=== PATIENT | female | born 1945 | race Two or more races ===

== ENCOUNTER 2023-12-19 14:42 | Inpatient (IN) | payer MEDICARE, BC ==
[~2023-12-19] VITALS: Ht 157.5 cm; Wt 49.0 kg
[2023-12-19] MEDS: IV NS 0.9% 1,000 ML BAG IV ONE (15:16)
[2023-12-19 15:28] LABS: BASOPHILS % (AUTO) 0.4 % (0.0-2.0); EOSINOPHILS # (AUTO) 0.1 K/uL (0.0-0.7); EOSINOPHILS % (AUTO) 1.4 % (0.0-6.0); HEMATOCRIT 35 % (33-45); HEMOGLOBIN 11.5 g/dL (11.5-14.8); LYMPHOCYTES # (AUTO) 1.1 K/uL (0.8-4.8); LYMPHOCYTES % (AUTO) 19.1 % (20.0-44.0); MEAN CORPUSCULAR HEMOGLOBIN 28 PG (26.0-33.0); MEAN CORPUSCULAR HGB CONC 33 g/dl (31.0-36.0); MEAN CORPUSCULAR VOLUME 84 fL (82-100); MONOCYTES # (AUTO) 0.5 K/uL (0.1-1.30); NEUTROPHILS # (AUTO) 4.1 K/uL (1.8-8.9); NEUTROPHILS % (AUTO) 70.1 % (43.0-81.0); PLATELET COUNT (AUTO) 203 K/uL (150-450); RED BLOOD CELL COUNT(AUTO) 4.15 MIL/uL (4.0-5.2); RED CELL DISTRIBUTION WIDTH 15.8 % (11.5-15.0); WHITE BLOOD COUNT (AUTO) 5.8 K/uL (4.3-11.0)
[2023-12-19 15:39] LABS: SERUM AMMONIA 19 umol/L (11-32)
[2023-12-19 15:41] LABS: CALCIUM, SERUM 8.9 mg/dL (8.5-10.1); CARBON DIOXIDE 32 mmol/L (21-32); CHLORIDE 103 mmol/L (98-107); CREATININE 1.3 mg/dL (0.6-1.3); GLUCOSE 92 mg/dL (74-106); POTASSIUM 3.3 mmol/L (3.5-5.1); SODIUM SERUM 142 mmol/L (136-145); UREA NITROGEN, BLOOD 22 mg/dL (7-18)
[2023-12-19 15:44] LABS: ALANINE AMINOTRANSFERASE 25 U/L (12-78); ALBUMIN 2.9 g/dL (3.4-5.0); ALKALINE PHOSPHATASE 41 U/L (46-116); ASPARTATE AMINOTRANSFERASE 21 U/L (15-37); BILIRUBIN,DIRECT 0.1 mg/dL (0.0-0.2); BILIRUBIN,TOTAL 0.6 mg/dL (0.2-1.0); TOTAL PROTEIN, SERUM 5.9 g/dL (6.4-8.2)
[2023-12-19] MEDS ORDERED: MAGN400O6 PO (15:56)
[2023-12-19] MEDS ORDERED: BISA10SU11 RC (15:56)
[2023-12-19] MEDS ORDERED: BUPR-54 PO (15:56)
[2023-12-19] MEDS ORDERED: AMPH10TA4 PO (15:56)
[2023-12-19] MEDS ORDERED: VENL37.591 PO (15:56)
[2023-12-19] MEDS ORDERED: ASPI-1420 PO (15:56)
[2023-12-19] MEDS ORDERED: THYR30TA2 PO (15:56)
[2023-12-19] MEDS ORDERED: BUPR-319 PO (15:56)
[2023-12-19] MEDS ORDERED: TRAZ150T75 PO (15:56)
[2023-12-19] MEDS ORDERED: MAG30ORA PO (15:56)
[2023-12-19] MEDS ORDERED: CYCL30DR EACHEYE (15:56)
[2023-12-19] MEDS ORDERED: ATOR10TA PO (15:56)
[2023-12-19] MEDS ORDERED: LOPE-195 PO (15:56)
[2023-12-19] MEDS ORDERED: LOSA100T31 PO (15:56)
[2023-12-19] MEDS ORDERED: ACET325T53 PO (15:56)
[2023-12-19 16:01] LABS: ALCOHOL, BLOOD < 3 mg/dL (0-10)
[2023-12-19 16:04] LABS: ACETAMINOPHEN 0 ug/ml (10-30); SALICYLATE 0.5 mg/dL (2.8-20.0)
[2023-12-19 16:41] LABS: APPEARANCE,URINE CLEAR (CLEAR); BILIRUBIN,URINE NEGATIVE (NEGATIVE); BLOOD, URINE TRACE-INTA Ery/uL (NEGATIVE); COLOR,URINE YELLOW (YELLOW); KETONES,URINE NEGATIVE (NEGATIVE); LEUKOCYTE ESTERASE ,URINE 2+ (NEGATIVE); NITRITE, URINE NEGATIVE (NEGATIVE); PROTEIN,URINE NEGATIVE (NEGATIVE); UGLUCOSE NEGATIVE (NEGATIVE); UROBILINOGEN,URINE 0.2 EU/dL (0.2)
[2023-12-19 16:48] LABS: BARBITURATE, URINE NEGATIVE (NEGATIVE); CANNABINOID, URINE NEGATIVE (NEGATIVE); COCCAINE, URINE NEGATIVE (NEGATIVE); OPIATE, URINE NEGATIVE (NEGATIVE); PHENCYCLIDINE SCREEN,URINE NEGATIVE (NEGATIVE)
[2023-12-19 16:50] LABS: AMPHETAMINE, URINE POSITIVE (NEGATIVE); BENZODIAZEPINE, URINE POSITIVE (NEGATIVE)
[2023-12-19 16:52] LABS: ADD URINE CULTURE YES; BACTERIA,URINE 1+ /HPF (None Seen); RBC,URINE 0-2 /HPF (0-2); WBC,URINE 51-80 /HPF (0-3)
[2023-12-19 16:53] LABS: SQUAMOUS EPITHELIAL CELL,UR Few /HPF (None Seen)
[2023-12-19] MEDS ORDERED: ACETAMINOPHEN 325 MG TABLET PO PRN ×2 (17:30)
[2023-12-19] MEDS ORDERED: BISACODYL SUPP (10 MG) 10 MG/SUPP.RECT SUPP.RECT RC PRN (17:30)
[2023-12-19] MEDS ORDERED: MAG HYDROX/AL HYDROX/SIMETH 30 ML UDC PO PRN (17:30)
[2023-12-19] MEDS ORDERED: MAGNESIUM HYDROXIDE 30 ML UDC PO PRN (17:30)
[2023-12-19] MEDS ORDERED: ONDANSETRON HCL/PF 4 MG/2 ML VIAL IVP PRN (17:30)
[2023-12-19] MEDS ORDERED: Z GUARD REMEDY 4 OZ OINT TP PRN (17:30)
[2023-12-19] MEDS ORDERED: POTASSIUM CHLORIDE 20 MEQ TAB.PRT.SR PO ONE (18:30)
[2023-12-19 20:00] VITALS: BP 140/73; TEMP 97.5; O2SAT 93
[2023-12-19] MEDS ORDERED: POTASSIUM CHLORIDE 10 MEQ/50 ML PREMIXED IVPB FOR PERIPHERAL LINE IV ONE (20:00)
[2023-12-19] MEDS: IV NS 0.9% 1,000 ML IV PRN (20:00)
[2023-12-19] MEDS: CEFTRIAXONE 1 G in IV D5W 50 ML IV SCH (20:01)
[2023-12-19 20:16] VITALS: BP 140/73; TEMP 97.5; O2SAT 93
[2023-12-19] MEDS: POTASSIUM CL. PREMIX PERIPHER. 50 ML IV SCH (21:04)
[2023-12-19] MEDS: TRAZODONE 50 MG TABLET PO SCH (22:00)
[2023-12-20] VITALS (8 sets, daily range): BP systolic 132–165; BP diastolic 62–97; TEMP 97.5–98.3; O2SAT 95–99
[2023-12-20 06:45] LABS: BASOPHILS % (AUTO) 0.3 % (0.0-2.0); EOSINOPHILS # (AUTO) 0.1 K/uL (0.0-0.7); EOSINOPHILS % (AUTO) 1.4 % (0.0-6.0); HEMATOCRIT 31 % (33-45); HEMOGLOBIN 10.5 g/dL (11.5-14.8); LYMPHOCYTES # (AUTO) 1.4 K/uL (0.8-4.8); LYMPHOCYTES % (AUTO) 23.9 % (20.0-44.0); MEAN CORPUSCULAR HEMOGLOBIN 28 PG (26.0-33.0); MEAN CORPUSCULAR HGB CONC 34 g/dl (31.0-36.0); MEAN CORPUSCULAR VOLUME 84 fL (82-100); MONOCYTES # (AUTO) 0.4 K/uL (0.1-1.30); MONOCYTES % (AUTO) 7.7 % (2.0-12.0); NEUTROPHILS # (AUTO) 3.8 K/uL (1.8-8.9); NEUTROPHILS % (AUTO) 66.7 % (43.0-81.0); PLATELET COUNT (AUTO) 169 K/uL (150-450); RED BLOOD CELL COUNT(AUTO) 3.75 MIL/uL (4.0-5.2); RED CELL DISTRIBUTION WIDTH 16.1 % (11.5-15.0); WHITE BLOOD COUNT (AUTO) 5.7 K/uL (4.3-11.0)
[2023-12-20 06:48] LABS: ALBUMIN 2.4 g/dL (3.4-5.0); BILIRUBIN,TOTAL 0.6 mg/dL (0.2-1.0); CALCIUM, SERUM 8.2 mg/dL (8.5-10.1); MAGNESIUM 2.3 mg/dL (1.8-2.4); PHOSPHORUS 2.6 mg/dL (2.5-4.9); POTASSIUM 3.4 mmol/L (3.5-5.1); TOTAL PROTEIN, SERUM 5.1 g/dL (6.4-8.2)
[2023-12-20] MEDS: LOSARTAN POTASSIUM 50 MG TABLET PO SCH (08:23)
[2023-12-20] MEDS: VENLAFAXINE XR 37.5 MG CAP.SR.24H PO SCH (08:23)
[2023-12-20] MEDS: ASPIRIN EC 81 MG TABLET.DR PO SCH (08:23)
[2023-12-20] MEDS: ATORVASTATIN 10 MG TABLET PO SCH (08:23)
[2023-12-20] MEDS: THYROID 30 MG TABLET PO SCH (08:23)
[2023-12-20] MEDS: POTASSIUM CL. PREMIX PERIPHER. 50 ML IV SCH (08:37)
[2023-12-20] MEDS: POLYVINYL ALCOHOL 15 ML BOTTLE EACHEYE SCH (10:20)
[2023-12-21] VITALS: BP 166/87; TEMP 97.5; O2SAT 93
[2023-12-21 00:52] VITALS: BP 153/69
[2023-12-21 04:44] VITALS: BP 156/73; TEMP 97.9; O2SAT 96
[2023-12-21 06:57] LABS: CALCIUM, SERUM 7.8 mg/dL (8.5-10.1); POTASSIUM 3.3 mmol/L (3.5-5.1)
[2023-12-21 07:01] LABS: BASOPHILS % (AUTO) 0.4 % (0.0-2.0); EOSINOPHILS # (AUTO) 0.1 K/uL (0.0-0.7); EOSINOPHILS % (AUTO) 2.3 % (0.0-6.0); HEMATOCRIT 33 % (33-45); HEMOGLOBIN 10.7 g/dL (11.5-14.8); LYMPHOCYTES # (AUTO) 1.3 K/uL (0.8-4.8); LYMPHOCYTES % (AUTO) 22.9 % (20.0-44.0); MEAN CORPUSCULAR HEMOGLOBIN 28 PG (26.0-33.0); MEAN CORPUSCULAR HGB CONC 33 g/dl (31.0-36.0); MEAN CORPUSCULAR VOLUME 84 fL (82-100); MONOCYTES # (AUTO) 0.5 K/uL (0.1-1.30); MONOCYTES % (AUTO) 9.3 % (2.0-12.0); NEUTROPHILS # (AUTO) 3.6 K/uL (1.8-8.9); NEUTROPHILS % (AUTO) 65.1 % (43.0-81.0); PLATELET COUNT (AUTO) 187 K/uL (150-450); RED BLOOD CELL COUNT(AUTO) 3.88 MIL/uL (4.0-5.2); RED CELL DISTRIBUTION WIDTH 15.4 % (11.5-15.0); WHITE BLOOD COUNT (AUTO) 5.6 K/uL (4.3-11.0)
[2023-12-21 09:00] VITALS: BP 115/70; TEMP 97.8; O2SAT 100
[2023-12-21] MEDS: POTASSIUM CHLORIDE 20 MEQ TAB.PRT.SR PO ONE (10:49)
[2023-12-21 12:47] VITALS: BP 163/76; TEMP 97.6; O2SAT 97
[2023-12-21] MEDS ORDERED: CEPH500C2 PO (12:51)
[2023-12-21] MEDS ORDERED: ATOR10TA PO (12:51)
[2023-12-21] MEDS ORDERED: TRAZ-182 PO (13:14)
[2023-12-21] MEDS ORDERED: VENL37.581 PO (13:14)
== END 2023-12-21 14:00 | disposition home health service (06) | DRG 640 ==
LOC: ER 14:58 → MED 18:03 → TELE 20:50
PROVIDERS: ADMIT Nurse Practitioner Acute Care; ATTEND Nurse Practitioner Acute Care
DX: E86.9 Volume depletion, unspecified (principal); G92.8 Other toxic encephalopathy; N39.0 Urinary tract infection, site not specified; E44.0 Moderate protein-calorie malnutrition; F03.90 Unspecified dementia, unspecified severity, without behavioral disturbance, psychotic disturbance, mood disturbance, and anxiety; Z20.822 Contact with and (suspected) exposure to COVID-19; I10 Essential (primary) hypertension; Z88.1 Allergy status to other antibiotic agents; Z79.82 Long term (current) use of aspirin; Z79.899 Other long term (current) drug therapy; B96.89 Other specified bacterial agents as the cause of diseases classified elsewhere; T50.905A Adverse effect of unspecified drugs, medicaments and biological substances, initial encounter; Y92.9 Unspecified place or not applicable; E87.6 Hypokalemia; R79.89 Other specified abnormal findings of blood chemistry; I25.2 Old myocardial infarction; I25.10 Atherosclerotic heart disease of native coronary artery without angina pectoris; E03.9 Hypothyroidism, unspecified; E88.09 Other disorders of plasma-protein metabolism, not elsewhere classified; Z96.649 Presence of unspecified artificial hip joint; Z98.61 Coronary angioplasty status; F32.A Depression, unspecified
CPT/HCPCS: 36415; 70450-TC; 71045-TC; 80048-TC; 80053-TC; 80076-TC; 81001; 82140-TC; 82550-TC; 82962-TC; 83735-TC; 84100-TC; 84443-TC; 84484-TC; 85025-TC; 87081-TC; 87086-TC; 92526; 92611-TC; 97112-TC; 97116-TC; 97530-TC; A4223; G0378; G0480; J0696; J3480; J3490; J7030; J7060